=== PATIENT | male | born 1995 | race Caucasian/White ===

== ENCOUNTER 2017-07-06 19:03 | Emergency (ER) | payer BC ==
[2017-07-06 19:16] VITALS: BP 152/72; PULSE 75; RESP 16; TEMP 98.1; O2SAT 96
[2017-07-06] MEDS ORDERED: IBUPROFEN 600 MG TAB PO ONE (19:30)
[2017-07-06] MEDS ORDERED: ACETAMINOPHEN 500 MG TAB PO ONE (19:30)
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
== END 2017-07-06 20:04 | disposition home or self-care (01) ==
LOC: CED 19:03
DX: S06.0X0A Concussion without loss of consciousness, initial encounter (principal); Y04.0XXA Assault by unarmed brawl or fight, initial encounter